=== PATIENT | male | born 1960 | race Caucasian/White ===

== ENCOUNTER → 2017-01-26 | Outpatient (CLI) | payer BC | LOC: MW.CHFP 16:15 | PROVIDERS: ATTEND Physician Assistant | DX: R68.89 Other general symptoms and signs (principal) | CPT/HCPCS: 87804 ==

== ENCOUNTER → 2017-02-04 | Outpatient (CLI) | payer BC ==
[2017-02-04 09:29] LABS: CHLORIDE,CL 106 mmol/L (98-110); SODIUM,NA 140 mmol/L (136-146)
== END ==
LOC: MW.CHFP 08:47
PROVIDERS: ATTEND Physician Assistant
DX: Z00.00 Encounter for general adult medical examination without abnormal findings (principal); I10 Essential (primary) hypertension
CPT/HCPCS: 36415; 80053; 80061; 85025

== ENCOUNTER → 2017-02-09 | Outpatient (CLI) | payer BC | LOC: MW.CHFP 10:29 | PROVIDERS: ATTEND Physician Assistant | DX: I10 Essential (primary) hypertension (principal) | CPT/HCPCS: 93005 ==

== ENCOUNTER → 2017-03-03 | Outpatient (CLI) | payer BC | LOC: MW.CHFP 11:27 | PROVIDERS: ATTEND Physician Assistant | DX: R42 Dizziness and giddiness (principal) | CPT/HCPCS: 36415; 83036; 85025 ==

== ENCOUNTER 2017-03-18 09:30 | Day surgery (SDC) | payer BC ==
[~2017-03-18 09:30] MED LIST: Lactated Ringers 1,000 ML IV SCH
--- NOTE | 2017-03-18 10:26 | PCM.PREANE ---
Preanesthetic Assessment - Anesthesia/Transfusion/Family Hx Anesthesia History: Prior Anesthesia Without Reaction Other Type of Anesthesia Reaction Comment: states he woke up during his cystoscopy Family History of Anesthesia Reaction: No Transfusion History: No Prior Transfusion(s) Intubation History: Unknown - Review of Systems General: No Symptoms Pulmonary: No Symptoms Cardiovascular: No Symptoms Gastrointestinal: Hematochezia Neurological: No Symptoms Other: Reports: None - Physical Assessment NPO Status Date: 03/17/17 NPO Status Time: 09:35 O2 Sat by Pulse Oximetry: 97 Respiratory Rate: 16 Vital Signs: Last Vital Signs Temp 36.4 C 03/18/17 09:53 Pulse 84 03/18/17 09:53 Resp 16 03/18/17 09:53 BP 141/79 H 03/18/17 09:53 Pulse Ox 97 03/18/17 09:53 Height: 1.73 m Weight: 72.575 kg ASA Class: 3 Mental Status: Alert & Oriented x3 Airway Class: Mallampati = 2 Dentition: Reports: Normal Dentition Thyro-Mental Finger Breadths: 2 Mouth Opening Finger Breadths: 2 ROM/Head Extension: Full Lungs: Clear to auscultation Cardiovascular: Regular Rate, Regular Rhythm - Allergies Allergies/Adverse Reactions: Allergies Allergy/AdvReac Type Severity Reaction Status Date / Time No Known Allergies Allergy Verified 03/15/17 09:32 - Blood Blood Available: No - Anesthesia Plan Pre-Op Medication Ordered: None - Acknowledgements Anesthesia Type Planned: MAC Pt an Appropriate Candidate for the Planned Anesthesia: Yes Alternatives and Risks of Anesthesia Discussed w Pt/Guardian: Yes Pt/Guardian Understands and Agrees with Anesthesia Plan: Yes PreAnesthesia Questionnaire HEENT History: Reports: Allergic rhinitis Cardiovascular History: Reports: High cholesterol, Hypertension Respiratory History: Reports: Sleep apnea, Other (see below) Other Respiratory History: states "my thinks I have sleep apnea but I have never been tested" Gastrointestinal History: Reports: Colon polyp, GERD, Hemorrhoids Genitourinary History: Reports: None Neurological History: Reports: Concussion Psychiatric History: Reports: Anxiety, Depression Dermatologic History: Reports: Other (see below) Other Dermatologic History: dry sking - Past Surgical History Head Surgeries/Procedures: Reports: None GI Surgical History: Reports: Colonoscopy (5-6 years ago) Other Female Surgeries/Procedures: cystoscopy in the past Male Surgical History: Reports: Other (see below) - SUBSTANCE USE Smoking Status *Q: Current Every Day Smoker (1 ppd) Tobacco Use Within Last Twelve Months: Cigarettes Days Per Week of Alcohol Use: 7 Number of Drinks Per Day: 2 Total Drinks Per Week: 14 Recreational Drug Type: Reports: Marijuana/Hashish Recreational Drug Last Use: 03/16/17 - HOME MEDS Home Medications: Home Meds Lisinopril 20 mg PO BID 03/15/17 [History] Omeprazole 20 mg PO BID 03/15/17 [History] atorvaSTATin Calcium [Atorvastatin Calcium] 20 mg PO DAILY 03/15/17 [History] - CURRENT (IN HOUSE) MEDS Current Meds: Current Medications Lactated Ringer's (Ringers, Lactated) 1,000 mls @ 125 mls/hr IV ASDIRECTED [facility] Last Admin: 03/18/17 09:55 Dose: 125 mls/hr
[2017-03-18] MEDS ORDERED: fentaNYL 100 MCG/2 ML SDV ONE (10:42)
[2017-03-18] MEDS ORDERED: Lidocaine 2% 5 ML SDV ONE (10:42)
[2017-03-18] MEDS ORDERED: Propofol 200 MG/20 ML SDV ONE ×2 (10:42→11:44)
[2017-03-18] MEDS ORDERED: Midazolam 1 MG/ML 2 ML SDV ONE (10:42)
--- NOTE | 2017-03-18 12:09 | PCM.OPNOTE ---
- General Post-Op/Procedure Note Date of Surgery/Procedure: 03/18/17 Operative Procedure(s): egd w bx. colonoscopy Findings: see dict [id number] Pre Op Diagnosis: BRBPR Post-Op Diagnosis: gastric polyp and hemorrhoid Anesthesia Technique: Moderate sedation Primary Surgeon: Barrie Veliz Pathology: egd bx and gastric polyp Complications: None Condition: Good
--- NOTE | 2017-03-18 12:23 | PCM.POSTAN ---
POST ANESTHESIA ASSESSMENT - MENTAL STATUS Mental Status: alert, oriented - RESPIRATORY Respiratory Status: respiratory rate WNL, airway patent, O2 saturation stable - CARDIOVASCULAR CV Status: pulse rate WNL, blood pressure stable - GASTROINTESTINAL GI Status: no symptoms - POST OP HYDRATION Hydration Status: adequate & stable - OBSERVATIONS Free Text/Narrative:: no anesthesia problems
--- NOTE | 2017-03-18 12:35 | OR ---
SURGEON: Barrie Veliz MD DATE OF PROCEDURE: 03/18/2017 PREOPERATIVE DIAGNOSIS: Bright red blood per rectum. POSTOPERATIVE DIAGNOSIS: Gastric polyp and hemorrhoid. PROCEDURE PERFORMED: EGD with biopsy and colonoscopy. DESCRIPTION OF PROCEDURE: EGD: The patient was taken to the endoscopy room, and with the FILTER TIP CATCHER, Diprivan was administered. A well-lubricated EGD scope was gently inserted through the oropharynx, down the esophagus, passing through the gastroesophageal junction, into the stomach. The mucosa was examined upon the passage. Any etiology will be noted. Once in the stomach, we continued to advance to the distal antrum, passed through the pylorus into the second portion of the duodenum. Again, the mucosa was examined for any abnormality and etiology. The scope was then retrieved back to the stomach and then retroflexed to look at the fundus of the stomach. If a biopsy was indicated, we will biopsy the antrum, body, and gastroesophageal junction. The air will be sucked out while the scope is retrieved to reduce the patient's discomfort. The patient tolerated the procedure well. There were no intraoperative complications. Dr. Veliz was present through the whole procedure. Prior to surgery, a time-out had been called, the patient identified, procedure identified and antibiotic administered. Colonoscopy: The patient was taken to the endoscopy room. A time out was called, patient identified, and procedure identified. Diprivan was then administrated. Patient went from awake to sleep, hearing doctor talking or door closing is normal. Perineum inspection and digital examination were then performed. A well-lubricated colonoscope was gently inserted through the rectum, advanced past the rectosigmoid junction, the descending colon, splenic flexure, transverse colon, hepatic flexure, ascending colon, arrived to the cecum. Cecum was identified as dictated in the finding. Then the scope was carefully withdrawn while attention was paid to the mucosal surface for any abnormality. Air will be sucked out during the scope withdrawal. At the rectum, retroflexed to examine any rectal diseases, fistula or hemorrhoids. Patient tolerated procedure well. There were no intraoperative complications, and Dr. Veliz was present throughout the whole procedure. FINDINGS: EGD: 1. The patient was easily sedated with FILTER TIP CATCHER and Diprivan. The patient was soundly snoring. 2. Proximal oropharynx and proximal esophagus were grossly normal in appearance and no stricture, inflammation, ulceration, or bleeding. There is a slight bulging at the mid esophagus about the size of 10 mm. It is kind of septal, and there is no diluting or ulceration observed. GE junction at 40, shows flame-like structure structure, salmon color change with blood vessel, consists with severe acid reflux. Stomach rugae is normal in appearance and no blood, no bile, no food particle. Distal antrum is very inflamed, and duodenum is grossly normal in appearance. The scope retrieved back to the stomach. Retroflexion look at the fundus of stomach, there was no hiatal hernia. Biopsy done at antrum, stomach, body, and GE junction at 40. Of note on the greater curvature of the stomach, there was a 4 to 5 mm polyp, and it was removed en bloc by cold biopsy forceps. Sucked out air while the scope was pulled out. The patient tolerated the procedure well. Colonoscopy finding: The patient was easily sedated with FILTER TIP CATCHER and Diprivan. The patient was soundly snoring. Bowel prep was suboptimum. This was a compromised study. The patient does not have semi-formed stool or opaque stool, but the patient has tremendous amount of bubbles coating all the mucosa, requiring constant irrigation in order to examine the mucosa. The patient's colon was rather straightforward and cecum indicated by ileocecal fold, one-to- one indentation, light immittance, appendiceal orifice is not observed. Mucosa examined upon scope pulling out with constant irrigation. Again there was a large amount of bubbles. This was a compromised study. The patient does not have a polyp, diverticulosis, mass, growth, inflammation, stricture, ulceration, bleeding, AV malformation. The patient does not have internal hemorrhoids. The patient does have mild to moderate external hemorrhoids. The patient would benefit from repeat colonoscopy in 10 years from today or if clinically indicated otherwise. As always, thank you for your kind referral. LAURIE / PRABHA /[id number]
[2017-03-18 13:50] VITALS: BP 118/64
== END 2017-03-18 13:00 | disposition home or self-care (01) ==
LOC: MW.SDS 09:30
PROVIDERS: ATTEND Surgery
PROC: 0DB48ZX Excision of Esophagogastric Junction, Via Natural or Artificial Opening Endoscopic, Diagnostic (ICD-10-PCS; principal; 2017-03-18)
PROC: 0DB68ZX Excision of Stomach, Via Natural or Artificial Opening Endoscopic, Diagnostic (ICD-10-PCS; 2017-03-18)
PROC: 0DJD8ZZ Inspection of Lower Intestinal Tract, Via Natural or Artificial Opening Endoscopic (ICD-10-PCS; 2017-03-18)
DX: K29.50 Unspecified chronic gastritis without bleeding (principal); K31.7 Polyp of stomach and duodenum; K64.4 Residual hemorrhoidal skin tags; I10 Essential (primary) hypertension; E78.00 Pure hypercholesterolemia, unspecified; K21.9 Gastro-esophageal reflux disease without esophagitis; F41.9 Anxiety disorder, unspecified; F32.9 Major depressive disorder, single episode, unspecified; F17.210 Nicotine dependence, cigarettes, uncomplicated; Z86.010 Personal history of colon polyps; Z98.890 Other specified postprocedural states; Z79.899 Other long term (current) drug therapy
CPT/HCPCS: 43239; 45378; J2250; J3010; J7120; 00740; 88305; 88312; J2704

== ENCOUNTER → 2017-03-22 | Outpatient (CLI) | payer BC ==
--- NOTE | 2017-03-22 14:04 | CT ---
EXAMINATION: CT chest without contrast HISTORY: Nicotine dependence COMPARISON: None TECHNIQUE: Axial CT images obtained through the chest without contrast. Coronal and sagittal reconst ructions obtained. FINDINGS: The lungs are clear without focal consolidation. No pleural effusion or pneumothorax. Mild bilateral apical scarring. The heart is normal in size without a pericardial effusion. Mild aortic calcifications are noted. The thoracic aorta is normal in caliber. Nonpathologically enlarged medias tinal and hilar lymph nodes are noted. No axillary lymphadenopathy. The central airways are clear. Visualized images of the upper abdomen appear unremarkable. Flowing syndesmophytes are noted, otherw ise unremarkable thoracic spine. Note suspicious osseous bodies identified. IMPRESSION: 1. No acute cardiopulmonary findings. 2. Mild coronary artery calcifications.
== END ==
LOC: MW.DI 11:18
PROVIDERS: ATTEND Physician Assistant
DX: R42 Dizziness and giddiness (principal); F17.210 Nicotine dependence, cigarettes, uncomplicated
CPT/HCPCS: 71250; 71250-26

== ENCOUNTER → 2017-03-22 | Outpatient (CLI) | payer BC ==
--- NOTE | 2017-03-22 13:25 | PCM.PRNOTE ---
- Free Text/Narrative Note: Exercise ECG Indication r/o CAD Patient was brought to the stress test lab in postabsorptive state verbal and paper consent was obtained from patient Vital signs at resting state blood pressure of 130/80 with a heart rate of 83 EKG shows sinus rhythm no ST changes no Q waves Maximal heart rate of 141and target heart rate is 138 Patient reached the target heart rate, completed stage IV David protocol Peak blood pressure is 178/80 Total exercise time of 9.[address] changes with a peak heart rate no arrhythmia METS 10.1 No symptom of chest pain or feeling dizzy Impression Normal hemodynamics, normal chronotropic, good exercise capacity, negative for ischemia on EKG Plan Per PCP
== END | disposition home or self-care (01) ==
LOC: MW.NM 06:36
PROVIDERS: ATTEND Physician Assistant
DX: R42 Dizziness and giddiness (principal)
CPT/HCPCS: 93017

== ENCOUNTER → 2017-04-01 | Outpatient (CLI) | payer BC ==
[~2017-04-01] MED LIST changes: +Albuterol 0.083% 2.5 MG/3 ML Neb Soln NEB ONE; -Lactated Ringers 1,000 ML IV SCH
== END ==
LOC: MW.RT 14:58
PROVIDERS: ATTEND Physician Assistant
DX: R42 Dizziness and giddiness (principal); F17.210 Nicotine dependence, cigarettes, uncomplicated
CPT/HCPCS: 94060; 94729

== ENCOUNTER 2019-05-18 09:41 | Emergency (ER) | payer BC ==
[2019-05-18 10:57] LABS: CHLORIDE,CL 96 mmol/L (98-107); SODIUM,NA 131 mmol/L (136-148)
--- NOTE | 2019-05-18 11:10 | EDM.PDOC ---
ED HPI GENERAL MEDICAL PROBLEM - General Chief Complaint: Abdominal Pain Stated Complaint: ABDOMINAL PAIN Time Seen by Provider: 05/18/19 11:08 Source of Information: Reports: Patient - History of Present Illness INITIAL COMMENTS - FREE TEXT/NARRATIVE: HISTORY AND PHYSICAL: History of present illness: [Patient has had chronic abdominal pain and discomfort 2 out of 10 nonradiating left lower quadrant as well as upper quadrant for 2 years he has had a colonoscopy within the last year, with a finding of one polyp which was removed at that time. Patient initially went to the clinic however they were unable to schedule him and sent him to the ER He has periods of constipation and loose stools waxing and waning no fever nausea vomiting chills sweats no chest pain shortness breath headache dizziness or palpitation no bowel or urine symptoms Review of systems: As per history of present illness and below otherwise all systems reviewed and negative. Past medical history: As per history of present illness and as reviewed below otherwise noncontributory. Surgical history: As per history of present illness and as reviewed below otherwise noncontributory. Social history: No reported history of drug or alcohol abuse. Family history: As per history of present illness and as reviewed below otherwise noncontributory. Physical exam: HEENT: Atraumatic, normocephalic, pupils reactive, negative for conjunctival pallor or scleral icterus, mucous membranes moist, throat clear, neck supple, nontender, trachea midline. Lungs: Clear to auscultation, breath sounds equal bilaterally, chest nontender. Heart: S1S2, regular, negative for clicks, rubs, or JVD. Abdomen: Soft, nondistended, nontender. Negative for masses or hepatosplenomegaly. Negative for costovertebral tenderness. Pelvis: Stable nontender. Genitourinary: Deferred. Rectal: Deferred. Extremities: Atraumatic, negative for cords or calf pain. Neurovascular unremarkable. Neuro: Awake, alert, oriented. Cranial nerves II through XII unremarkable. Cerebellum unremarkable. Motor and sensory unremarkable throughout. Exam nonfocal. Diagnostics: [CBC CMP troponin lipase UA ] Therapeutics: [] Impression: [Abdominal pain/discomfort] Definitive disposition and diagnosis as appropriate pending reevaluation and review of above. abd pain Pain Score (Numeric/FACES): 5 - Related Data Allergies Allergy/AdvReac Type Severity Reaction Status Date / Time No Known Allergies Allergy Verified 03/15/17 09:32 Home Meds: Home Meds Lisinopril 20 mg PO BID 03/15/17 [History] Omeprazole 20 mg PO BID 03/15/17 [History] atorvaSTATin Calcium [Atorvastatin Calcium] 20 mg PO DAILY 03/15/17 [History] Past Medical History HEENT History: Reports: Allergic Rhinitis Cardiovascular History: Reports: High Cholesterol, Hypertension Respiratory History: Reports: Sleep Apnea, Other (See Below) Other Respiratory History: states "my thinks I have sleep apnea but I have never been tested" Gastrointestinal History: Reports: Colon Polyp, GERD, Hemorrhoids Genitourinary History: Reports: None Neurological History: Reports: Concussion Psychiatric History: Reports: Anxiety, Depression Dermatologic History: Reports: Other (See Below) Other Dermatologic History: dry sking - Past Surgical History Head Surgeries/Procedures: Reports: None Male Surgical History: Reports: Other (See Below) Social & Family History - Family History Family Medical History: Noncontributory - Tobacco Use Smoking Status *Q: Current Every Day Smoker Years of Tobacco use: 45 Packs/Tins Daily: 1 Used Tobacco, but Quit: No - Recreational Drug Use Recreational Drug Use: Yes Other Recreational Drug Type: PT will not tell me what he takes. ED ROS GENERAL - Review of Systems Review Of Systems: See Below ED EXAM, GENERAL - Physical Exam Exam: See Below Course - Vital Signs Last Recorded V/S: Last Vital Signs Temp 97.6 F 05/18/19 09:55 Pulse 92 05/18/19 09:55 Resp 20 05/18/19 09:55 BP 145/93 H 05/18/19 09:55 Pulse Ox 98 05/18/19 09:55 - Orders/Labs/Meds Orders: Active Orders 24 hr Category Date Time Status EKG Documentation Completion [RC] STAT Care 05/18/19 10:02 Active Labs: Laboratory Tests 05/18/19 05/18/19 05/18/19 Range/Units 10:11 10:11 10:54 WBC 6.66 (4.0-11.0) K/uL RBC 5.58 (4.50-5.90) M/uL Hgb 17.2 H (13.0-17.0) g/dL Hct 48.9 (38.0-50.0) % MCV 87.6 (80.0-98.0) fL MCH 30.8 (27.0-32.0) pg MCHC 35.2 (31.0-37.0) g/dL RDW Std Deviation 42.1 (28.0-62.0) fl RDW Coeff of Bam 13 (11.0-15.0) % Plt Count 248 (150-400) K/uL MPV 8.80 (7.40-12.00) fL Add Manual Diff YES Neutrophils % (Manual) 48 (48.0-80.0) % Lymphocytes % (Manual) 30 (16.0-40.0) % Monocytes % (Manual) 18 H (0.0-15.0) % Eosinophils % (Manual) 1 (0.0-7.0) % Basophils % (Manual) 1 (0.0-1.5) % Metamyelocytes % 2 % Nucleated RBC % 0.0 /100WBC Absolute Seg Neuts 3.2 (1.4-5.7) Lymphocytes # (Manual) 2.0 (0.6-2.4) Monocytes # (Manual) 1.2 H (0.0-0.8) Eosinophils # (Manual) 0.1 (0.0-0.7) Basophils # (Manual) 0.1 (0.0-0.1) Absolute Metamyelocyte 0.1 Nucleated RBCs # 0 K/uL Sodium 131 L (136-148) mmol/L Potassium 4.2 (3.5-5.1) mmol/L Chloride 96 L (98-107) mmol/L Carbon Dioxide 25.2 (21.0-32.0) mmol/L BUN 14 (7.0-18.0) mg/dL Creatinine 0.8 (0.8-1.3) mg/dL Est Cr Clr Drug Dosing 93.81 mL/min Estimated GFR (MDRD) > 60.0 ml/min Glucose 109 H (74-106) mg/dL Calcium 9.6 (8.5-10.1) mg/dL Total Bilirubin 0.6 (0.2-1.0) mg/dL AST 27 (15-37) IU/L ALT 30 (14-63) IU/L Alkaline Phosphatase 97 (46-116) U/L Troponin I < 0.050 (0.000-0.056) ng/mL Total Protein 8.2 (6.4-8.2) g/dL Albumin 4.2 (3.4-5.0) g/dL Globulin 4.0 (2.6-4.0) g/dL Albumin/Globulin Ratio 1.0 (0.9-1.6) Lipase 253 (73-393) U/L Urine Color YELLOW Urine Appearance CLEAR Urine pH 6.0 (5.0-8.0) Ur Specific [place] 1.010 (1.001-1.035) Urine Protein NEGATIVE (NEGATIVE) mg/dL Urine Glucose (UA) NEGATIVE (NEGATIVE) mg/dL Urine Ketones NEGATIVE (NEGATIVE) mg/dL Urine Occult Blood SMALL H (NEGATIVE) Urine Nitrite NEGATIVE (NEGATIVE) Urine Bilirubin NEGATIVE (NEGATIVE) Urine Urobilinogen 0.2 (<2.0) EU/dL Ur Leukocyte Esterase NEGATIVE (NEGATIVE) Urine RBC 0-1 (0-2/HPF) Urine WBC NONE SEEN (0-5/HPF) Ur Epithelial Cells NOT SEEN (NONE-FEW) Urine Bacteria RARE (NEGATIVE) Meds: Medications Discontinued Medications Generic Name Dose Route Start Last Admin Trade Name Jatinderq PRN Reason Stop Dose Admin Iopamidol 100 ml 05/18/19 11:36 05/18/19 11:56 Isovue Multipack-370 (76%) IVPUSH 05/18/19 11:37 100 ml ONETIME STA Administration Departure - Departure Time of Disposition: 12:31 Disposition: Home, Self-Care 01 Condition: Good Clinical Impression: Abdominal pain - Discharge Information Referrals: Kayla Guan MD [Primary Care Provider] - Forms: ED Department Discharge Additional Instructions: Follow-up with primary care in 2 weeks Return if symptoms persist or worsen [facility] [address] [place] [id number] The following information is given to patients seen in the emergency department who are being discharged to home. This information is to outline your options for follow-up care. We provide all patients seen in our emergency department with a follow-up referral. The need for follow-up, as well as the timing and circumstances, are variable depending upon the specifics of your emergency department visit. If you don't have a primary care physician on staff, we will provide you with a referral. We always advise you to contact your personal physician following an emergency department visit to inform them of the circumstance of the visit and for follow-up with them and/or the need for any referrals to a consulting specialist. The emergency department will also refer you to a specialist when appropriate. This referral assures that you have the opportunity for follow-up care with a specialist. All of these measure are taken in an effort to provide you with optimal care, which includes your follow-up. Under all circumstances we always encourage you to contact your private physician who remains a resource for coordinating your care. When calling for follow-up care, please make the office aware that this follow-up is from your recent emergency room visit. If for any reason you are refused follow-up, please contact the [facility] emergency department at and asked to speak to the emergency department charge nurse. - My Orders Last 24 Hours: My Active Orders 05/18/19 10:02 EKG Documentation Completion [RC] STAT - Assessment/Plan Last 24 Hours: My Active Orders 05/18/19 10:02 EKG Documentation Completion [RC] STAT
[2019-05-18] MEDS ORDERED: Iopamidol 755 MG/ML 200 ML Multipack Bottle IVPUSH STA (11:36)
--- NOTE | 2019-05-18 12:23 | CT ---
CT of the abdomen and pelvis with contrast. HISTORY: Pain TECHNIQUE: Axial CT images were obtained of the abdomen and pelvis following administration of 100 mL of Isovue-370 in the left antecubital fossa without complication. Coronal and sagittal reconstructions obtained. FINDINGS: The lung bases are clear, no pleural effusion. The liver, spleen, adrenal glands, and pancreas appear normal. The gallbladder is normal. There is no bulky retroperitoneal lymphadenopathy or abdominal ascites. The kidneys enhance and function symmetrically without evidence of obstructive uropathy. The large and small bowel are normal in caliber without evidence of obstruction. No focal pericolonic inflammation or stranding. Appendix is normal. The urinary bladder is normal. No bulky pelvic lymphadenopathy or free pelvic fluid. Mild vascular disease. No suspicious osseous abnormalities identified. IMPRESSION: 1. No acute findings noted within the abdomen or pelvis. Tiny fat-containing umbilical hernia.
[2019-05-18 12:34] VITALS: BP 117/80
== END 2019-05-18 12:54 | disposition home or self-care (01) ==
LOC: MW.ED 09:41
DX: R10.32 Left lower quadrant pain (principal); R10.12 Left upper quadrant pain; E78.00 Pure hypercholesterolemia, unspecified; I10 Essential (primary) hypertension; K21.9 Gastro-esophageal reflux disease without esophagitis; F17.210 Nicotine dependence, cigarettes, uncomplicated; Z79.899 Other long term (current) drug therapy
CPT/HCPCS: 36415; 74177; 80053; 81001; 83690; 84484; 85025; 93005; 99284; Q9967; 99283